=== PATIENT | male | born 1985 | race Caucasian/White ===

== ENCOUNTER 2018-07-27 18:22 | Emergency (ER) | payer BC ==
[2018-07-27 18:43] VITALS: O2SAT 98
--- NOTE | 2018-07-27 18:47 | ERPHSYRPT ---
- History of Present Illness Time Seen by Provider: 07/27/18 18:41 Source: patient Exam Limitations: no limitations Patient Subjective Stated Complaint: cutting sweet potato and cut left ring finger,no bleeding at present time Triage Nursing Assessment: pt has flap laceration to left ring finger , no bleeding Physician History: small 1 cm flap lac to distal tip of left ring finger; no other injury or compalints; some bleeding stopped; no numbness; immunization current ; right handed Occurred: just prior to arrival, this afternoon Method of Injury: incised (sharp knife in kitchen) Quality: constant, aching Severity of Pain-Max: moderate Severity of Pain-Current: mild Extremities Pain Location: 4th finger: left Allergies/Adverse Reactions: No Known Drug Allergies Allergy (Unverified 07/27/18 18:41) Home Medications: No Reportable Medications [No Reported Medications] 07/27/18 [History] Hx Tetanus, Diphtheria Vaccination/Date Given: Yes (4 years ago) Hx Influenza Vaccination/Date Given: No Hx Pneumococcal Vaccination/Date Given: No Immunizations Up to Date: Yes - Review of Systems Musculoskeletal: Injury (left ring finger) Skin: Other (1-2 cm flap laceration distal left ring finger) - Past Medical History Pertinent Past Medical History: No - Past Surgical History Past Surgical History: Yes Other Surgical History: cyst removed - Social History Smoking Status: Never smoker Exposure to second hand smoke: No Alcohol Use: Socially Drug Use: none Patient Lives Alone: No Significant Family History: no pertinent family hx - Female History Hx Now: No - Nursing Vital Signs Nursing Vital Signs: Pain Scale Pain Intensity 1 - Physical Exam General Appearance: mild distress, alert, thin Hand Exam: normal inspection (except for small 2 cm superficial flap laceration to distal left ring finger), non-tender, normal ROM, laceration (distal tip left ring finger), No bone tenderness, No ecchymosis Neuro/Tendon Exam: normal sensation, normal motor functions, normal tendon functions, responds to pain, no evidence tendon injury Mental Status Exam: alert, oriented x 3, cooperative Skin Exam: normal color, warm, dry, laceration (2 cm flap thin distal left ring finger), No rash Oxygen Delivery: Room Air Procedures - Laceration/Wound Repair Left Distal Finger Wound Length (cm): 2 (thin flap left ring finger tip flap) Wound's Depth, Shape: superficial, linear, flap Wound Explored: clean Irrigated: Yes Hibiclens Prep: Yes Wound Repaired With: Dermabond - Course Nursing assessment & vital signs reviewed: Yes Ordered Tests: Active Orders 24 hr Category Date Time Status Prepare for Sutures STAT Care 07/27/18 18:41 Ordered Re-Check Vital Signs STAT Care 07/27/18 18:41 Ordered Sutures STAT Care 07/27/18 18:41 Ordered Wound Care STAT Care 07/27/18 18:41 Ordered - Progress Progress: improved Progress Note: 07/27/18 18:46 instructions given Counseled pt/family regarding: diagnosis, need for follow-up - Departure Time of Disposition: 18:47 Departure Disposition: Home Clinical Impression: 2 cm flap lac tip left ring finger Condition: Stable Critical Care Time: No Referrals: PRETTY CATALAN [Primary Care Provider] - Instructions: Laceration Repair With Glue (DC) Additional Instructions: clean and dry Follow-up with family doctor as directed. Call for appointment. Return if any problems. If you smoke please stop. Call or follow up with your family doctor for assistance if you need it to stop. Please wear your seatbelt when driving. Have a nice day. Thank you for allowing us to participate in your care today. :o) Dr Manuel Coburn
[2018-07-27 19:07] VITALS: BP 118/73; PULSE 71
== END 2018-07-27 19:09 | disposition home or self-care (01) ==
LOC: ED 18:22
PROC: 0HQGXZZ Repair Left Hand Skin, External Approach (ICD-10-PCS; principal; 2018-07-27)
DX: S61.215A Laceration without foreign body of left ring finger without damage to nail, initial encounter (principal); W26.0XXA Contact with knife, initial encounter; Y93.G3 Activity, cooking and baking; Y92.000 Kitchen of unspecified non-institutional (private) residence as the place of occurrence of the external cause
CPT/HCPCS: 12001; 99283